=== PATIENT | male | born 1940 | race Caucasian/White ===

== ENCOUNTER 2025-04-22 11:09 | Emergency (ER) | payer BC, OTHER ==
[~2025-04-22] VITALS: Ht 182.9 cm; Wt 81.8 kg
--- NOTE | 2025-04-22 12:31 | ED.PDOC ---
Musculoskeletal HPI Comments Ruel Vance is a 85-year-old male with past medical history of dementia, hypertension and hypothyroidism. The patient came to the ED with due to he had a mechanical fall, ground level, while walking at home. In formation is provided by his . His explained he fell on his back, at that time he did not lost consciousness. On further questioning, his explain he did had a previous fall due to unsteady gait 2 days ago, when he hit his head and left arm with a skin abrasion; no loss of consciousness was reported at that time. Today, due to persistent unsteady gait his brought him to the ED. The patient denies headache, neck pain, chest pain, chills, fever, diarrhea, nausea or vomit. The patient uses a Le catheter due to urinary incontinence. In the ED: BP is 161/75mmHg, Head CT scan has been ordered, the patient will be further assessed. Chief Complaint: Fall Injury Time Seen by MD: 12:08 Reviewed Notes: Nurses Notes, Medications, Allergies Allergies: Coded Allergies: NO KNOWN ALLERGIES (Unverified , 04/22/25) Information Source: Patient, Spouse Mode of Arrival: EMS Location: Left Extremity Location: Arm Timing: Hours Severity: Mild Past Medical History PAST MEDICAL HISTORY: Dementia, HTN Past Medical History (Other): Hypothyroidims Surgical History: Denies all surgeries Family History Family History: Reviewed,noncontributory to illness Social History Smoker: Quit Greater Than 1 Year Alcohol: Denies ETOH Use Drugs: Denies Drug Use Lives In: Home Constitutional: denies: chills, diaphoresis, fatigue, fever, malaise, sweats, weakness, others EENTM: denies: blurred vision, double vision, ear bleeding, ear discharge, ear drainage, ear pain, ear ringing, eye pain, eye redness, hearing loss, mouth pain, mouth swelling, nasal discharge, nose bleeding, nose congestion, nose pain, photophobia, tearing, throat pain, throat swelling, voice changes, others Respiratory: denies: cough, hemoptysis, orthopnea, SOB at rest, shortness of breath, SOB with excertion, stridor, wheezing, others Cardiovascular: denies: chest pain, dizzy spells, diaphoresis, Dyspnea on exertion, edema, irregular heart beat, left arm pain, lightheadedness, palpitations, PND, syncope, others Gastrointestinal: denies: abdomen distended, abdominal pain, blood streaked bowels, constipated, diarrhea, dysphagia, difficulty swallowing, hematemesis, melena, nausea, poor appetite, poor fluid intake, rectal bleeding, rectal pain, vomiting, others Genitourinary: denies: burning, dysuria, flank pain, frequency, hematuria, incontinence, penile discharge, penile sore, pain, testicle pain, testicle swelling, urgency, others Neurological: reports: others (Unsteady gait ); denies: dizziness, fainting, headache, left sided numbness, left sided weakness, numbness, paresthesia, pre-e xisting deficit, right sided numbness, right sided weakness, seizure, speech problems, tingling, tremors, weakness Musculoskeletal: denies: back pain, gout, joint pain, joint swelling, muscle pain, muscle stiffness, neck pain, others Integumetry: denies: bruises, change in color, change in hair/nails, dryness, laceration, lesions, lumps, rash, wounds, others Allergic/Immunocompromised: denies: Difficulty Healing, Frequent Infections, Hives, Itching, others Hematologic/Lymphatic: denies: anemia, blood clots, easy bleeding, easy bruising, swollen glands, others Endocrine: denies: excessive hunger, excessive sweating, excessive thirst, excessive urination, flushing, intolerance to cold, intolerance to heat, unexplained weight gain, unexplained weight loss, others Psychiatric: denies: anxiety, bipolar disorder, depression, hopeless, panic disorder, schizophrenia, sleepless, suicidal, others Unable to Obtain due to: Dementia (Most information was obtain from his ) Physical Exam Exam Comments Alert, Oriented in person, not in place or time. says is his baseline due to the dementia. General Appearance: No Apparent Distress, Normal HEENT: Normal ENT Inspection, Pharynx Normal, TMs Normal Neck: Full Range of Motion, Non-Tender, Normal, Normal Inspection Respiratory: Chest Non-Tender, Lungs Clear, No Accessory Muscle Use, No Respiratory Distress, Normal Breath Sounds Cardiovascular: No Edema, No JVD, No Murmur, No Gallop, Normal Peripheral Pulses, Regular Rate/Rhythm Breast Exam: Deferred Gastrointestinal: No Organomegaly, Non Tender, No Pulsatile Mass, Normal Bowel Sounds, Soft Genitalia: Deferred Pelvic: Deferred Rectal: Deferred Extremities: Normal capillary refill, Normal range of motion, Non-tender, No pedal edema, Pelvis stable, Other (Left arm open wound, abrasion of the skin. 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 Was a procedure done?: No Differential Diagnosis EXT Differential Diagnosis: Sprain, Contusion X-Ray, Labs, Meds, VS Vital Signs Date Time Temp Pulse Resp B/P (MAP) Pulse Ox O2 Delivery O2 Flow Rate FiO2 04/22/25 11:15 97.8 86 14 161/75 98 97.8 Lab Test 04/22/25 15:38 04/22/25 15:26 04/22/25 14:24 Range/Units Urine Color Light-orange Yellow Urine Clarity Ex.turbid Clear Urine pH 8.5 5.0-9.0 Urine Specific Hume 1.026 1.001-1.035 Urine Protein 4+ H Negative Urine Ketones Negative Negative Urine Blood Negative Negative /uL Urine Nitrite 2+ H Negative Urine Bilirubin Negative Negative Urine Urobilinogen Normal Negative mg/dL Urine Leukocyte Esterase 3+ Negative /uL Urine RBC 63 0 - 3 /hpf Urine WBC Clumps Present None Seen /hpf Urine Microscopic WBC 82 H 0-3 /HPF Urine Squamous Epithelial Cells None seen <5 /hpf Urine Calcium Oxalate Crystals Many None Seen Urine Bacteria None seen None Seen /hpf Urine Mucus Many None Seen Urine Glucose Normal Normal mg/dL Troponin I High Sensitivity 6 6 </=54 ng/L White Blood Count 7.4 4.4-10.8 10^3/uL Red Blood Count 4.04 L 4.5-5.90 10^6/uL Hemoglobin 12.7 L 13.5-17.5 g/dL Hematocrit 38.1 L 41.0-53.0 % Mean Corpuscular Volume 94.2 80.0-100.0 fL Mean Corpuscular Hemoglobin 31.4 28.0-32.0 pg Mean Corpuscular Hemoglobin Concent 33.3 32.0-36.0 g/dL Red Cell Distribution Width 15.4 H 11.8-14.3 % Platelet Count 312 140-450 10^3/uL Mean Platelet Volume 7.0 6.9-10.8 fL Neutrophils (%) (Auto) 80.2 H 37.0-80.0 % Lymphocytes (%) (Auto) 11.9 10.0-50.0 % Monocytes (%) (Auto) 5.6 0.0-12.0 % Eosinophils (%) (Auto) 1.2 0.0-7.0 % Basophils (%) (Auto) 1.1 0.0-2.0 % Neutrophils # (Auto) 5.9 1.6-8.6 10 ^3/uL Lymphocytes # (Auto) 0.9 0.4-5.4 10 ^3/uL Monocytes # (Auto) 0.4 0-1.3 10 ^3/uL Eosinophils # (Auto) 0.1 0-0.8 10 ^3/uL Basophils # (Auto) 0.1 0-0.2 10 ^3/uL Nucleated Red Blood Cells 0.1 % Sodium Level 146 H 136-145 mmol/L Potassium Level 4.2 3.5-5.1 mmol/L Chloride Level 109 H 98-107 mmol/L Carbon Dioxide Level 28 20-31 mmol/L Anion Gap 9 5-15 Blood Urea Nitrogen 24 H 9-23 mg/dL Creatinine 1.22 0.700-1.30 mg/dL Glomerular Filtration Rate Calc 58 >90 mL/min BUN/Creatinine Ratio 19.7 10.0-20.0 Serum Glucose 100 74-106 mg/dL Calcium Level 9.2 8.7-10.4 mg/dL Total Bilirubin 0.3 0.2-1.0 mg/dL Aspartate Amino Transferase (AST) 34 13-40 U/L Alanine Aminotransferase (ALT) 19 7-40 U/L Alkaline Phosphatase 149 H 46-116 U/L Total Protein 6.7 5.7-8.2 g/dL Albumin 3.9 3.2-4.8 g/dL Current Medications Medications (Trade) Dose Ordered Sig/Tala Route Start Time Stop Time Status Last Admin Diphtheria/ Tetanus/Acell Pertussis (Boostrix T-Dap) 0.5 ml ONCE ONCE IM 04/22/25 13:30 04/22/25 13:31 DC 04/22/25 15:49 X-Ray, Labs, Meds, VS Comment 15:00 The patient has been reassessed. Patient is alert but confused. CBC: WBC: 7.1w265w/ul, H: 12.7mg/dl CMP: Na:146mmol/l, K: 4.2mmol/l Head CT scan: No acute intracranial abnormality seen. Mild left maxillary sinus mucosal thickening with secretions. Please correlate for sinusitis. Chest Xray: No acute disease. Dr. Westfall: Patient was seen by myself along with Dr. Verdugo. 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 Patient has a history of frequent falls. I spoke to the and the patient myself. Patient is however awake alert in his able to answer questions. He does have a large skin tear to his left arm that has been cleaned. Tdap has been updated. Blood work has been done with a normal WBC count and largely unremarkable. CT scan of the brain has been done with no evidence of acute pathology. Patient does have a Le. Urine is positive for UTI. states he was recently treated for UTI but does not know the name. She states however the urine is still cloudy. She believes it may has been Keflex. At this time I have started him on nitrofurantoin. I did offer admission given his frequent falls with the prefers to go home and is comfortable taking care of him home. Patient is on aspirin I also advised her they need to re-evaluate aspirin use as his risk of falls and getting a intracranial hemorrhage is likely greater than continuing the aspirin. I did offer admission however the prefers to go home and is comfortable taking care of him. Advised him Time of 1ST Reevaluation: 15:00 Reevaluation 1ST: Unchanged Patient Education/Counseling: Diagnosis, Treatment, Prognosis, Need For Follow Up Family Education/Counseling: Diagnosis, Treatment, Prognosis, Need For Follow Up Sepsis Recent Procedure: No On Antibiotic Therapy: No Respiratory Rate >20: No Heart Rate >90: No Temp<36 C (96.8 F) or >38.3 C: No SBP <90 or MAP <65 mmHG: No New Acute Mental Status Change: No Is the patient on CPAP, BIPAP,: No IV fluid given: No Departure 1 Departure Time of Disposition: 16:09 Impression: Primary Impression: Accident due to mechanical fall without injury Qualified Codes: W19.XXXA - Unspecified fall, initial encounter Additional Impressions: Dementia Qualified Codes: F03.B0 - Unspecified dementia, moderate, without behavioral disturbance, psychotic disturbance, mood disturbance, and anxiety UTI (urinary tract infection) Qualified Codes: N30.00 - Acute cystitis without hematuria Disposition: HOME / SELF CARE / HOMELESS Condition: Fair Additional Instructions: Please read all instructions provided in this packet carefully. You MUST follow-up with your primary care/family doctor in 1 to 2 days. If you are unable to see your primary care/family doctor, please return to our emergency room for re-assessment and re-evaluation in 1 to 2 days. Return to the emergency room here in our facility or to the nearest ER [facility] if your symptoms change or worsen. CONSULTATIONS: you MUST Follow-up for consultation as soon as possible with: Dr. Cabrera in 1-2 days. Please call for appointment. You MUST call the consultants office yourself to make an appointment. You may need to arrange that through your insurance and/or your primary/family doctor. If you are unable to see the sales and service consultant in 1 to 2 days, you must return to our emergency room (or any other ER of your choice) for re-assessment and re- evaluation. Adequate fluid hydration. Although you have been discharged from the Emergency Department, this does not mean that you have a "clean bill of health". No definitive diagnosis for your symptoms has been made today. It is possible that you are in the process of developing a serious illness. This is why you must return to the ED without fail if any new or worsening symptoms develop. Images: PATIENT: RUEL BARRETT ACCT: [id number] UNIT: [id number] : 1940 LOC: ER ROOM / BED: / AGE / SEX: 85 / M ADM STATUS: REG ER SERVICE 1324 ORDERING PHYSICIAN: GALI WESTFALL MD PROCEDURE(s): HWOCT - HEAD WITHOUT CONTRAST REASON: Rule out intracranial hemorrhage ORDER NUMBER(s): [id number], ACCESSION NUMBER(s): [id number] CLINICAL HISTORY: Rule out intracranial hemorrhage TECHNIQUE: Helical scanning was performed of the head from the skull base to the vertex. Multiplanar reconstructions were performed. This exam was performed according to our departmental dose optimization program. Up-to-date CT equipment and radiation dose reduction techniques are utilized as appropriate. CTDI 55 DLP 981 COMPARISON: None FINDINGS: There is no evidence for acute intracranial hemorrhage, acute ischemic changes, mass, mass effect, or extra-axial fluid collection. There is no hydrocephalus or midline shift. There is no effacement of the cerebral sulci and basal subarachnoid cisterns. The robledo-white matter differentiation is well maintained. There is mild brain volume loss and minimal chronic small vessel ischemic change. There has been bilateral cataract extraction. The imaged paranasal sinuses demonstrates mild left maxillary sinus mucosal thickening with secretions. IMPRESSION: No acute intracranial abnormality seen. Mild left maxillary sinus mucosal thickening with secretions. Please correlate for sinusitis. ATED BY: JUNG HAWTHORNE MD DICTATED DATE/TIME: 04/22/251427 SIGNED BY: JUNG HAWTHORNE MD SIGNED DATE/TIME: 04/22/251427 PATIENT: RUEL BARRETT ACCT: [id number] UNIT: [id number] : 1940 LOC: ER ROOM / BED: / AGE / SEX: 85 / M ADM STATUS: REG ER SERVICE 23 ORDERING PHYSICIAN: GALI WESTFALL MD PROCEDURE(s): CXR2 - CHEST TWO VIEWS ROUTINE REASON: Rule out pneumonia ORDER NUMBER(s): [id number], ACCESSION NUMBER(s): [id number] CHEST RADIOGRAPH Indication: Rule out pneumonia Technique: Frontal and lateral view of the chest was obtained Comparison: None FINDINGS: Lines and Tubes: None Lungs: Clear Pleura: No effusion. No pneumothorax. Cardiomediastinal contours: Unremarkable Bones: Unremarkable IMPRESSION: No evidence of acute disease. ATED BY: SD ACEVES MD DICTATED DATE/TIME: 04/22/251414 SIGNED BY: SD ACEVES MD SIGNED DATE/TIME: 04/22/251414 Written Prescriptions Nitrofurantoin 100 mg BID for 5 days e-Prescriptions Nitrofurantoin (Nitrofurantoin) 100 Mg Cap 1 CAP PO BID for 7 Days, #14 CAP Prov: GALI WESTFALL MD 04/22/25 Discharged With: Spouse Comments Goals of care discussed with the patient > 35 min. Discussed plan of care with Dr. Westfall Code status: Full code PCP: Dr. Mena, neurology: Dr. Cabrera Plan discussed with: Patient, the patient agrees with the plan. Critical Care Note Critical Care Time?: No Stability Stability form required: No Heart Score Heart Score: Heart Score Response (Comments) Value History N/A 0 EKG N/A 0 Age N/A 0 Risk Factors N/A 0 Troponin N/A 0 Total 0 DOMENIC VERDUGO RESIDENT Apr 22, 2025 12:31 GALI WESTFALL MD Apr 22, 2025 16:43
--- NOTE | 2025-04-22 14:18 | DVH ---
CHEST RADIOGRAPH Indication: Rule out pneumonia Technique: Frontal and lateral view of the chest was obtained Comparison: None FINDINGS: Lines and Tubes: None Lungs: Clear Pleura: No effusion. No pneumothorax. Cardiomediastinal contours: Unremarkable Bones: Unremarkable IMPRESSION: No evidence of acute disease.
--- NOTE | 2025-04-22 14:31 | DVH ---
CLINICAL HISTORY: Rule out intracranial hemorrhage TECHNIQUE: Helical scanning was performed of the head from the skull base to the vertex. Multiplanar reconstructions were performed. This exam was performed according to our departmental dose optimizat ion program. Up-to-date CT equipment and radiation dose reduction techniques are utilized as appropri ate. CTDI 55 DLP 981 COMPARISON: None FINDINGS: There is no evidence for acute intracranial hemorrhage, acute ischemic changes, mass, mass effect, or extra-axial fluid collection. There is no hydrocephalus or midline shift. There is no effacement of the cerebral sulci and basal subarachnoid cisterns. The robledo-white matter differentiation is well mirtha ntained. There is mild brain volume loss and minimal chronic small vessel ischemic change. There has been bila teral cataract extraction. The imaged paranasal sinuses demonstrates mild left maxillary sinus mucosal thickening with secretion s. IMPRESSION: No acute intracranial abnormality seen. Mild left maxillary sinus mucosal thickening with secretions. Please correlate for sinusitis.
[2025-04-22 14:39] LABS: Hematocrit 38.1 % (41.0-53.0); Hemoglobin 12.7 g/dL (13.5-17.5); Mean Corpuscular Hemoglobin 31.4 pg (28.0-32.0); Mean Corpuscular Volume 94.2 fL (80.0-100.0); Nucleated Red Blood Cells % 0.1 %
[2025-04-22 14:54] LABS: Alanine Aminotransferase 19 U/L (7-40); Albumin 3.9 g/dL (3.2-4.8); Anion Gap 9 (5-15); BUN/Creatinine Ratio 19.7 (10.0-20.0); Bilirubin, Total 0.3 mg/dL (0.2-1.0); Calcium 9.2 mg/dL (8.7-10.4); Carbon Dioxide 28 mmol/L (20-31); Glucose 100 mg/dL (74-106); Potassium 4.2 mmol/L (3.5-5.1); Total Protein 6.7 g/dL (5.7-8.2)
[2025-04-22 14:56] LABS: Alkaline Phosphatase 149 U/L (46-116); Blood Urea Nitrogen 24 mg/dL (9-23); Chloride 109 mmol/L (98-107); Sodium 146 mmol/L (136-145)
[2025-04-22] MEDS: TETANUS-DIPTH-ACEL PERTUSSIS 0.5ML SYR Tdap IM ONE (15:49)
[2025-04-22 15:53] LABS: Urine Protein, UAD 4+ (Negative); Urine WBC Clumps PRESENT /hpf (None Seen)
[2025-04-22] MEDS ORDERED: NITR-52 PO (16:40)
[2025-04-22 17:10] VITALS: BP 146/75; PULSE 84; RESP 18; TEMP 98.2; O2SAT 97
== END 2025-04-22 17:12 | disposition home or self-care (01) ==
LOC: ER 11:09 → EDBD 11:09 → ER 17:12
DX: S41.102A Unspecified open wound of left upper arm, initial encounter (principal); T14.8XXA Other injury of unspecified body region, initial encounter; N39.0 Urinary tract infection, site not specified; F03.B0 Unspecified dementia, moderate, without behavioral disturbance, psychotic disturbance, mood disturbance, and anxiety; I10 Essential (primary) hypertension; E03.9 Hypothyroidism, unspecified; Z87.891 Personal history of nicotine dependence; W19.XXXA Unspecified fall, initial encounter; Y93.89 Activity, other specified; Y92.89 Other specified places as the place of occurrence of the external cause; Y99.8 Other external cause status
CPT/HCPCS: 36415; 70450; 71046; 80053; 81001; 84484; 85025; 90471; 90715